=== PATIENT | female | born 1940 | race Caucasian/White ===

== ENCOUNTER → 2016-09-06 | Day surgery (SDC) | payer MEDICARE, OTHER ==
[~2016-09-06] MED LIST: ATENOLOL PO; BACTRIM DS TABL1 TA1 PO; ESTRACE42.5 GM VAG; NITROFURANTOIN25 GM; PYRIDIUM100 MG PO; ZOFRAN PO
--- NOTE | ~2016-09-06 | EKG ---
PATIENT: NAYELI BLACK UNIT #: [id number] Ventricular Rate: 64 BPM Atrial Rate: 64 BPM P-R Interval: 168 ms QRS Duration: 80 ms Q-T Interval: 402 ms QTC Calculation(Bezet): 414 ms P [place]: 56 degrees Calculated R [place]: 53 degrees Calculated T [place]: 28 degrees Diagnosis Line: Normal sinus rhythm Diagnosis Line: Normal ECG Diagnosis Line: No previous ECGs available Diagnosis Line: Confirmed by ESTELITA RHODES MD ([id number]) on 09/06/2016 Diagnosis Line: 6:09:08 PM INTERPRETING MD: CARMELO HOOKS
--- NOTE | ~2016-09-06 | OR ---
Unit #: [id number] #: [id number] Patient: NAYELI BLACK [id number] [address] [address] [id number] MR#: [id number] NAME: NAYELI BLACK ROOM: Date of Procedure: 09/06/2016 Admission Date: 09/06/2016 Surgeon: Gopal Wright M.D. : 1940 Attending Physician: Gopal Wright M.D. Referring Physician: Gopal Wright M.D. Primary Care Physician: Liliane Calvillo A.P.R.N. PROCEDURE OPERATIVE NOTE PREOPERATIVE DIAGNOSIS Left hydronephrosis. POSTOPERATIVE DIAGNOSIS No left hydronephrosis. PROCEDURE PERFORMED 1. Cystoscopy. 2. Bilateral retrograde pyelograms. 3. Interpretation of bilateral retrograde pyelograms. SURGEON Gopal Wright M.D. ANESTHESIA General. INDICATIONS FOR PROCEDURE Ms. Black is a pleasant 76-year-old female with a history of recurrent urinary tract infections. Non-contrasted CT of the abdomen and pelvis showed question of left hydronephrosis. The risks, benefits, and alternatives including bleeding, infection, damage to adjacent structures, need for further surgery as well as the risk of anesthesia were explained to the patient. Informed consent was obtained, she wished to proceed. DESCRIPTION OF PROCEDURE The patient was taken to the operating suite and properly identified. After the application of satisfactory general anesthetic, the patient was placed in the dorsal lithotomy position. All pressure points were padded at the satisfaction of the surgical, anesthetic and nursing teams. Her genitalia were prepped and draped in the usual sterile fashion. I introduced the rigid 22-M[place] cystoscope. She had a moderate cystocele defect. I cannulated the left ureteral orifice for the Pollack catheter. The findings were as follows. INTERPRETATION OF LEFT RETROGRADE PYELOGRAM There is no hydronephrosis. There are no filling defects. There is a single collecting system. There is prompt drainage. I then cannulated the right ureteral orifice and did a retrograde pyelogram on that side with the following findings. INTERPRETATION OF RIGHT RETROGRADE PYELOGRAM Unit #: [id number] #: [id number] Patient: NAYELI BLACK There was no hydronephrosis. There was no filling defect. There is a single collecting system. There was prompt drainage. The bladder was emptied. The scope was removed. The patient tolerated the procedure well without complications. Dictated by... Eduarda Chung/chinedu TD: 09/06/2016 12:48 JOB #: [id number] PROCEDURE OPERATIVE NOTE Page 1 of 1 X Gopal Wright MD X PROCEDURE OPERATIVE NOTE
[2016-09-06 10:14] LABS: URINE SOURCE CLEAN CATCH
[2016-09-06 10:19] LABS: URINE APPEARANCE CLEAR; URINE BILIRUBIN NEG (NEG); URINE BLOOD NEG (NEG); URINE COLOR YELLOW; URINE GLUCOSE NEG (NEG); URINE KETONE NEG (NEG); URINE LEUKOCYTE ESTERASE 1+ (NEG); URINE NITRATE NEG (NEG); URINE PH 5.5 (5-8); URINE PROTEIN NEG (NEG); URINE SPECIFIC GRAVITY 1.022 (1.003-1.035)
[2016-09-06 10:21] LABS: CULTURE INDICATED? YES; URBCS1 AUWI 0-2 /[HPF] (0-2); URINE BACTERIA AUWI NEG (NEGATIVE); URINE SQUAMOUS EPITHELIAL CELL FEW /[HPF]
[2016-09-06 10:29] LABS: BASOPHIL% 0.5 % (0-2.5); EOSINOPHIL% 0.4 % (0.0-7.0); HEMATOCRIT 38.9 % (35.0-45.0); HEMOGLOBIN 12.9 gm/dL (12.0-16.0); LYMPHOCYTE# 1.1 X10e3 (1.0-3.5); LYMPHOCYTE% 15.2 % (17.0-45.0); MEAN CELL VOLUME 91.3 FL (83-96); MEAN CORPUSCULAR HEMOGLOBIN 30.4 PG (28-34); MEAN CORPUSCULAR HGB CONC 33.3 g/dL (30-36); MEAN PLATELET VOLUME 8.2 FL (6.5-11.5); MONOCYTE# 0.5 X10e3 (0-1.0); MONOCYTE% 6.4 % (3.0-12.0); NEUTROPHIL# 5.6 X10e3 (1.5-7.1); NEUTROPHIL% 77.5 % (40-75); PLATELET COUNT 209 X10e3 (140-420); RED BLOOD COUNT 4.26 X10e (3.90-5.30); RED CELL DISTRIBUTION WIDTH 12.7 % (11.0-15.5); WHITE BLOOD COUNT 7.2 X10e3 (4.0-10.5)
[2016-09-06 10:31] LABS: DIFF IND NO
[2016-09-06 10:56] LABS: BUN/CREATININE RATIO 13.33; CALCIUM SERUM 8.8 mg/dL (8.4-10.2); CREATININE SERUM 0.9 mg/dL (0.6-1.4); POTASSIUM 3.7 mmol/L (3.5-5.1)
== END | disposition home or self-care (01) ==
LOC: CSUR 08-23 11:00
PROVIDERS: Urology
DX: N81.10 Cystocele, unspecified (principal); I10 Essential (primary) hypertension; K21.9 Gastro-esophageal reflux disease without esophagitis; M19.90 Unspecified osteoarthritis, unspecified site; Z87.440 Personal history of urinary (tract) infections; Z87.891 Personal history of nicotine dependence; Z90.710 Acquired absence of both cervix and uterus
CPT/HCPCS: 80048; 81003; 85025; 87086; 93005; J0690; J2405; J2765; J3010